=== PATIENT | female | born 1970 | race African-American/Black ===

== ENCOUNTER 2017-01-23 20:13 | Emergency (ER) | payer OTHER ==
[~2017-01-23] VITALS: Ht 162.6 cm; Wt 50.0 kg
[2017-01-23 20:32] VITALS: BP 142/81
== END 2017-01-23 23:55 | disposition left against medical advice (07) ==
LOC: ER 21:23
DX: Z53.21 Procedure and treatment not carried out due to patient leaving prior to being seen by health care provider (principal)